=== PATIENT | male | born 1965 | race African-American/Black ===

== ENCOUNTER 2016-06-16 13:56 | Emergency (ER) | payer OTHER ==
[~2016-06-16 13:56] MED LIST: Iopamidol 370 76% 125 ML VIAL FS ONE
--- NOTE | 2016-06-16 14:44 | RAD ---
PORTABLE UPRIGHT FRONTAL CHEST RADIOGRAPH 06/16/2016 COMPARISON: 09/16/2014 HISTORY: Chest pain. FINDINGS: No pneumothorax, pleural fluid, focal consolidation, or alveolar edema. There is mild pulmonary vas cular prominence. Cardiac silhouette is prominent. IMPRESSION: No focal consolidation or alveolar edema. POS: [facility]
[2016-06-16 15:10] LABS: Anion Gap 23 mmol/L (10-20); BUN (Urea Nitrogen) 18 mg/dL (8.4-25.7); Bilirubin, Total 2.5 mg/dL (0.2-1.2); Calc. Creatinine Clearance 0 mL/min (70-130); Calcium 9.3 mg/dL (7.8-10.44); Carbon Dioxide 18 mmol/L (22-29); Chloride 106 mmol/L (98-107); Estimated GFR-MDRD 63; Glucose 106 mg/dL (70-105); Hemoglobin 12.1 g/dL (14.0-18.0); Lymphocytes 8 % (21-51); MDiff Complete? YES; Mean Corpuscular HGB CONC 31.5 g/dL (32.0-36.0); Mean Corpuscular Hemoglobin 27.6 pg (27.0-31.0); Mean Corpuscular Volume 87.6 fl (80.0-94.0); Mean Platelet Volume 12.4 fL (7.4-10.4); Monocytes 5 % (0-10); Neutrophil 87 % (42-75); Platelet Count 189 thou/uL (130-400); Potassium 4.4 mmol/L (3.5-5.1); Protein, Total 7.3 g/dL (6.0-8.3); RBC Distribution Width 17.5 % (11.5-14.5); Red Blood Cell (RBC) Count 4.39 mill/uL (4.70-6.10); Sodium 143 mmol/L (136-145); White Blood Cell (WBC) Count 13.3 thou/uL (4.8-10.8)
[2016-06-16 15:11] LABS: ALT (SGPT) 60 U/L (0-55); AST (SGOT) 66 U/L (5-34); Albumin 4.5 g/dL (3.5-5.0); Alkaline Phosphatase 89 U/L (40-150); Globulin 2.8 g/dL (2.4-3.5)
--- NOTE | 2016-06-16 17:15 | CT ---
CT ANGIOGRAM THORAX WITH IV CONTRAST AND 3D RECONSTRUCTIONS: Date: 06-16-16 History: Elevated D-Dimer in a patient with chest pain. Comparison: 07-29-14 FINDINGS: There is suboptimal timing of the contrast bullous which limits opacification of the segmental and s ubsegmental pulmonary arteries. No definitive filling defect is seen to suggest a pulmonary embolus . The thoracic aorta is normal in caliber without evidence of an aortic dissection. The heart is moderately enlarged. There is a very small pericardial effusion present. There is a moderately large right and small left pleural effusion with associated patch of atelectas is. Left lobe of the thyroid gland again remains enlarged and similar to the prior study. There is question of a nodule within the left lobe of the thyroid gland, again this is a stable finding. No other interval change. IMPRESSION: 1. Suboptimal opacification of the pulmonary arteries, but no definitive filling defect is seen to suggest a pulmonary embolus. 2. Thoracic aorta is normal in caliber without evidence of an aortic dissection. 3. Moderately large right and small left pleural effusions with associated passive atelectasis. 4. Stable enlargement of the left lobe of the thyroid gland with suggestion of a subtle heterogeneo us nodule present. This is unchanged from study in 2015. If thyroid ultrasound has not been perfor med, nonemergent thyroid ultrasound is suggested for further evaluation. POS: [facility]
[2016-06-16] MEDS ORDERED: Furosemide 40 MG/4 ML VIAL ONE (17:54)
[2016-06-16] MEDS ORDERED: Furosemide 20 MG/2 ML VIAL ONE (17:54)
--- NOTE | 2016-06-16 19:23 | ERRECORD ---
[facility] EMERGENCY RECORD HPI CHEST PAIN (15:26 ALMO) CHIEF COMPLAINT: Patient presents for evaluation of chest pain. HISTORIAN: History provided by patient. LOCATION: Symptoms are localized, most severe in the left lower chest, Pain radiates, Radiation to the arm, Radiation to the shoulder. QUALITY: Unable to describe the quality of the pain. SEVERITY: Maximum severity of symptoms moderate, Currently there are no symptoms. TIME COURSE: Gradual onset of symptoms, Symptoms have resolved. ASSOCIATED WITH: Associated with cough, Associated with diaphoresis, No associated fever, Associated with nausea, Associated with palpitations, Associated with shortness of breath, cough is chronic. EXACERBATED BY: Patient's condition exacerbated by nothing. RELIEVED BY: Patient's condition relieved by nothing. RISK FACTORS: Coronary artery disease risk factors, include diabetes, include high cholesterol, include hypertension. HEART SCORE: Patients history is Highly Suspicious (2), Patients ECG has Non specific repolarisation disturbance/LBTB/PM (1), Patients age is greater than 45 and less than 65 (1), Patient has equal to or greater than 3 risk factors or history of atherosclerotic disease (2), Patients Troponin is equal to or less than 1 times the normal limit (0). WELLS CRITERIA FOR PE: No clinical signs and symptoms of a DVT (0), Patient has, or is likely to have, a primary diagnosis of PE (3), Patient previously has had an objectively diagnosed PE or DVT (1.5), Total 4.5. ROS (18:37 ALMO) CONSTITUTIONAL: Historian denies fever. CARDIOVASCULAR: Historian reports chest pain, reports diaphoresis, reports palpitations. RESPIRATORY: Historian reports cough, reports shortness of breath. GI: Historian denies abdominal pain, reports nausea. SKIN: Negative skin review of systems. NEUROLOGIC: Historian denies focal weakness, denies mental status changes. NOTES: All systems reviewed, negative except as described above. PAST MEDICAL HISTORY (ThuJun 16, 2016 14:06 JACQUELINE) MEDICAL HISTORY: Notes: VERIFIED 06-16-16, Past medical history includes cardiac history, arrhythmia, a flutter, Past medical history includes history of hyperlipidemia, high cholesterol, currently being treated, Past medical history includes renal disease, Chronic kidney disease stage 3, now stage 2., Past medical history &a-1R&a+25V*p+0X*w0682H*c202B*c15G*c2P*p-0X&a-25V&a+1R Name: Darek Moreno : 1965 M51 MedRec: [id number] AcctNum: [id number] Prepared: ThuJun 16, 2016 20:10 by Interface Page 1 of 4 pMD [facility] EMERGENCY RECORD includes history of diabetes, Type II, uncontrolled. Past medical history includes history of hypertension,gout. 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 Systolic CHF with an EF of 20-25% in 2013 demonstrating global hypokinesis on Echo. MALE SURGICAL HISTORY: VERIFIED 06-16-16, I AND D OF CYST TO NECK AND R HAND. Debridement of diabetic ulcer to L foot over the 5th metatarsal with wound vac in place. PSYCHIATRIC HISTORY: Notes: DENIES, No previous psychiatric history. SOCIAL HISTORY: Patient has no smoking history, Patient denies alcohol use, Patient denies drug use. FAMILY HISTORY: Family istory is not significant. KNOWN ALLERGIES No Known Allergies (Unconfirmed) No Known Drug Allergies CURRENT MEDICATIONS furosemide: TABLET : Strength - 40 mg : ORAL Patient Dose: 0.5 tab(s) Oral once a day. (14:33 MDEB) lovastatin: TABLET : Strength - 40 mg : ORAL Patient Dose: 1 tab(s) Oral once a day. (14:33 MDEB) metFORMIN: TABLET : Strength - 500 mg : ORAL Patient Dose: 2 tab(s) Oral 2 times a day. (14:33 MDEB) meTOPROLOL tartrate: TABLET : Strength - 25 mg : ORAL Patient Dose: 2 tab(s) Oral 2 times a day. (14:33 MDEB) glyBURIDE: TABLET : Strength - 5 mg : ORAL Patient Dose: 1 tab(s) Oral 2 times a day. (14:34 MDEB) enalapril maleate: TABLET : Strength - 20 mg : ORAL Patient Dose: 1 tab(s) Oral once a day. (14:35 MDEB) HumuLIN 70/30: VIAL (ML) : Strength - 100 unit/mL (70-30) : SUBCUTANEOUS Patient Dose: Unknown.SS. (14:35 MDEB) ferrous sulfate: TABLET : Strength - 300 mg (60 mg iron) : ORAL Patient Dose: 1 tab(s) Oral once a day. (14:37 MDEB) VITAL SIGNS VITAL SIGNS: BP: 186/102, Pulse: 86, Resp: 17, O2 sat: 98 on Room Air, Time: 06/16/2016 13:58. (13:58 JPER) BP: 189/108, Pulse: 96, Resp: 22, O2 sat: 96 on Room Air, Time: 06/16/2016 14:30. (14:30 JPER) BP: 158/95, Pulse: 94, Resp: 21, O2 sat: 96 on Room Air, Time: 06/16/2016 15:00. (15:00 JPER) &a-1R&a+25V*p+0X*r8439Y*c202B*c15G*c2P*p-0X&a-25V&a+1R Name: Darek Moreno : 1965 M51 MedRec: [id number] AcctNum: [id number] Prepared: ThuJun 16, 2016 20:10 by Interface Page 2 of 4 pMD [facility] EMERGENCY RECORD BP: 164/93, Pulse: 93, Resp: 19, O2 sat: 98 on Room Air, Time: 06/16/2016 15:30. (15:30 JPER) BP: 159/96, Pulse: 107, Resp: 20, O2 sat: 98 on Room Air, Time: 06/16/2016 16:00. (16:00 JPER) BP: 177/96, Pulse: 101, Resp: 20, Temp: 98.5 (Tympanic), O2 sat: 98 on Room Air, Time: 06/16/2016 16:30. (16:30 JPER) BP: 175/121, Pulse: 103, Resp: 18, Temp: 98.5 (Tympanic), O2 sat: 98 on Room Air, Time: 06/16/2016 17:00. (17:00 JPER) BP: 176/107, Pulse: 97, Resp: 22, O2 sat: 98 on Room Air, Time: 06/16/2016 17:30. (17:30 JPER) PHYSICAL EXAM (18:38 ALMO) CONSTITUTIONAL: Vital Signs Reviewed. HEAD: Head exam included findings of head atraumatic, normocephalic. EYES: Pupils equally round and reactive to light, Extraocular muscles intact. NECK: Neck exam included findings of normal range of motion, Thyroid normal, Jugular venous distention present, no cervical adenopathy. RESPIRATORY CHEST: Respiratory exam included findings of, mild respiratory distress, Breath sounds diminished, to bilateral lower lobes. ABDOMEN MALE: Abdominal exam included findings of abdomen nontender, Bowel sounds normal, Liver normal, Spleen normal. BACK: Back exam included findings of normal inspection. NEURO: Neuro exam findings include patient oriented to person, place and time, no focal motor deficits. SKIN: Skin exam normal. PSYCHIATRIC: Psychiatric exam included findings of patient oriented to person place and time, Normal affect, Judgment normal, Insight normal. EKG INTERPRETATION (15:32 ALMO) MONITOR STRIP: Monitor strip shows normal sinus rhythm. 12 LEAD EKG INTERPRETATION: 12 lead EKG interpreted by Emergency Department Physician at time of study, Conduction with, [place], right, Other findings include:, prolonged QTc. MEDICATION ADMINISTRATION SUMMARY Drug Name: furosemide (bulk), Dose Ordered: 80 mg, Route: IV Push, Status: Given, Time: 17:59 06/16/2016, Drug Name: Aspir-81, Dose Ordered: 4 tab(s), Route: Oral, Status: Given, Time: 14:20 06/16/2016, Detailed record available in Medication Service section. PROBLEM LIST No recorded problems &a-1R&a+25V*p+0X*q4638R*c202B*c15G*c2P*p-0X&a-25V&a+1R Name: Darek Moreno : 1965 M51 MedRec: [id number] AcctNum: [id number] Prepared: ThuJun 16, 2016 20:10 by Interface Page 3 of 4 pMD [facility] EMERGENCY RECORD DIAGNOSIS (19:12 MDEB) FINAL: PRIMARY: CHEST PAIN R/O, CHF. PRESCRIPTION No recorded prescriptions DISPOSITION PATIENT: Disposition Type: Transfer, Disposition: Transfer to [facility], Patient left the department. (19:12 MDEB) Patient left the department. (20:05 MDEB) Isaacs: UCHE=MD Julian, Charlie PHILLIPS=Riley RN, Gifty WILBURN=DWAYNE Ordonez, Melinda &a-1R&a+25V*p+0X*g1577K*c202B*c15G*c2P*p-0X&a-25V&a+1R Name: Darek Moreno : 1965 M51 MedRec: [id number] AcctNum: [id number] Prepared: Raheem Jun 16, 2016 20:10 by Interface Page 4 of 4 pMD MTDD
--- NOTE | 2016-06-16 19:32 | PICIS ---
[facility] EMERGENCY RECORD TRIAGE (ThuJun 16, 2016 14:06 JPER) PATIENT: NAME: Darek Moreno, AGE: 51, GENDER: male, : [facility] 1965, TIME OF GREET: ThuJun 16, 2016 13:57, PREFERRED LANGUAGE: Salvadorean, RACE: Black or , ETHNICITY: Not or , ECODE BILLING MAP: [facility], SSN: [id number], Zip Code: [address], KG WEIGHT: 131.54 (est.), PHONE: , , , PERSON ID: [id number], PCP: SNEHA. (ThuJun 16, 2016 14:06 JPER) COMPLAINT: CHEST PAINS. (ThuJun 16, 2016 14:06 JPER) ADMISSION: URGENCY: 3 Urgent, ADMISSION SOURCE: Doctor's Office, TRANSPORT: Walk-in, BED: ED -02. (ThuJun 16, 2016 14:06 JPER) ASSESSMENT: Assessment: CP / SOB ONSET X 2 DAYS. (ThuJun 16, 2016 14:06 JPER) PAIN: Patient complains of pain described as, No aggravating factors, No relieving factors. (ThuJun 16, 2016 14:06 JPER) SIRS SCORING: Heart Rate 55-109 (0), Temp range 96.8-101.1 (0), respiratory rate 12-24 (0), Mental Status altered: no (0). (ThuJun 16, 2016 14:06 JPER) TRIAGE SCREENING: Patient denies suicidal ideation, Patient denies presence of domestic violence. (ThuJun 16, 2016 14:06 JPER) PROVIDERS: TRIAGE NURSE: Gifty Lin RN. (ThuJun 16, 2016 14:06 JPER) VITAL SIGNS: BP 186/102, Pulse 86, Resp 17, O2 Sat 98, on Room Air, Time 06/16/2016 13:58. (13:58 JPER) PREVIOUS VISIT ALLERGIES: No Known Drug Allergies. (ThuJun 16, 2016 14:06 JPER) KNOWN ALLERGIES No Known Allergies (Unconfirmed) No Known Drug Allergies CURRENT MEDICATIONS furosemide: TABLET : Strength - 40 mg : ORAL Patient Dose: 0.5 tab(s) Oral once a day. (14:33 MDEB) lovastatin: TABLET : Strength - 40 mg : ORAL Patient Dose: 1 tab(s) Oral once a day. (14:33 MDEB) metFORMIN: TABLET : Strength - 500 mg : ORAL Patient Dose: 2 tab(s) Oral 2 times a day. (14:33 MDEB) meTOPROLOL tartrate: TABLET : Strength - 25 mg : ORAL Patient Dose: 2 tab(s) Oral 2 times a day. (14:33 MDEB) glyBURIDE: TABLET : Strength - 5 mg : ORAL Patient Dose: 1 tab(s) Oral 2 times a day. (14:34 MDEB) enalapril maleate: &a-1R&a+25V*p+0X*i2616F*c202B*c15G*c2P*p-0X&a-25V&a+1R Name: Darek Moreno : 1965 M51 MedRec: [id number] AcctNum: [id number] Prepared: ThuJun 16, 2016 20:17 by Interface Page 1 of 9 pMD [facility] EMERGENCY RECORD TABLET : Strength - 20 mg : ORAL Patient Dose: 1 tab(s) Oral once a day. (14:35 MDEB) HumuLIN 70/30: VIAL (ML) : Strength - 100 unit/mL (70-30) : SUBCUTANEOUS Patient Dose: Unknown.SS. (14:35 MDEB) ferrous sulfate: TABLET : Strength - 300 mg (60 mg iron) : ORAL Patient Dose: 1 tab(s) Oral once a day. (14:37 MDEB) VITAL SIGNS VITAL SIGNS: BP: 186/102, Pulse: 86, Resp: 17, O2 sat: 98 on Room Air, Time: 06/16/2016 13:58. (13:58 JPER) BP: 189/108, Pulse: 96, Resp: 22, O2 sat: 96 on Room Air, Time: 06/16/2016 14:30. (14:30 JPER) BP: 158/95, Pulse: 94, Resp: 21, O2 sat: 96 on Room Air, Time: 06/16/2016 15:00. (15:00 JPER) BP: 164/93, Pulse: 93, Resp: 19, O2 sat: 98 on Room Air, Time: 06/16/2016 15:30. (15:30 JPER) BP: 159/96, Pulse: 107, Resp: 20, O2 sat: 98 on Room Air, Time: 06/16/2016 16:00. (16:00 JPER) BP: 177/96, Pulse: 101, Resp: 20, Temp: 98.5 (Tympanic), O2 sat: 98 on Room Air, Time: 06/16/2016 16:30. (16:30 JPER) BP: 175/121, Pulse: 103, Resp: 18, Temp: 98.5 (Tympanic), O2 sat: 98 on Room Air, Time: 06/16/2016 17:00. (17:00 JPER) BP: 176/107, Pulse: 97, Resp: 22, O2 sat: 98 on Room Air, Time: 06/16/2016 17:30. (17:30 JPER) NURSING ASSESSMENT: CARDIOVASCULAR (14:07 JPER) CONSTITUTIONAL: Patient arrives, via personal wheelchair, Unsteady gait, Assistance to cart, History obtained from patient, Patient appears, anxious, uncomfortable, Patient cooperative, Patient alert, Oriented to person, place and time, Skin warm, Skin dry, Skin normal in color, Mucous membranes pink, Mucous membranes moist, Patient is well-groomed, Patient complains of CP / SOB X 2 DAYS. PAIN: midsternal. CARDIOVASCULAR: Cardiovascular assessment findings include heart rate normal, Left radial pulse +3(easily palpated, considered normal), Right radial pulse +3(easily palpated, considered normal). RESPIRATORY/CHEST: Breath sounds clear, Respiratory assessment findings include respiratory effort easy, Respirations regular, Conversing normally, Neck and chest exam findings include trachea midline, Chest expansion equal, Chest movement symmetrical. NOTES: Emotional support needed and given, Patient tolerated procedure well. SAFETY: Side rails up, Cart/Stretcher in lowest position, Family at bedside, Call light within reach, Hospital ID band on. NURSING PROCEDURE: BEDSIDE TESTING PATIENT IDENTIFIER: Patient actively involved in identification &a-1R&a+25V*p+0X*x1899R*c202B*c15G*c2P*p-0X&a-25V&a+1R Name: Darek Moreno : 1965 M51 MedRec: [id number] AcctNum: [id number] Prepared: ThuJun 16, 2016 20:17 by Interface Page 2 of 9 pMD [facility] EMERGENCY RECORD process, Patient's identity verified by patient stating name, Patient's identity verified by patient stating date, Patient's identity verified by hospital ID bracelet, Patient's identity verified by family member. (16:17 AWAT) Patient actively involved in identification process, Patient's identity verified by patient stating name, Patient's identity verified by hospital ID bracelet. (19:08 AGAN) GLUCOSE: Capillary blood sample, Result (mg/dl) 97. (16:17 AWAT) Glucose testing indicated for diabetic patient, Capillary blood sample, Result (mg/dl) 98. (19:08 AGAN) FOLLOW-UP: After procedure, results given to Dr. JORDAN. (16:17 AWAT) After procedure, results given to Dr. PITTMAN. (19:08 AGAN) SAFETY: Side rails up, Cart/Stretcher in lowest position, Family at bedside, Call light within reach, Hospital ID band on, Physician notified of above findings. (16:17 AWAT) Side rails up, Cart/Stretcher in lowest position, Family at bedside, Hospital ID band on. (19:08 AGAN) NURSING PROCEDURE: IV (14:40 AWAT) PATIENT IDENITIFIER: Patient actively involved in identification process, Patient's identity verified by patient stating name, Patient's identity verified by patient stating date, Patient's identity verified by hospital ID bracelet, Patient's identity verified by family member. IV SITE 1: IV therapy indicated for chest pain, IV established, to the right forearm, using a 20 gauge catheter, in four attempts, IV site prepped with chloraprep, Saline lock established, Flushed with normal saline (mls): 10, Labs drawn at time of placement, labeled in the presence of the patient and sent to lab, Notes: 4 attempts total by myself & one other RN. FOLLOW-UP SITE 1: After procedure, sterile transparent dressing applied. NOTES: Emotional support needed and given, Patient tolerated procedure well. SAFETY: Side rails up, Cart/Stretcher in lowest position, Family at bedside, Call light within reach, Hospital ID band on, Physician notified of above findings. NURSING PROCEDURE: NURSE NOTES NURSES NOTES: Notes: PT SAYS HE IS MINIMALLY IMPROVED SAYING HE FEELS A BIT IMPROVED OVER ARRIVAL; PT APPEARS APPREHENSIVE AND LOOKS TO ANSWER ALL QUESTIONS APPROPRIATELY; PT CONT IN SR RATE 90'S. (15:25 JPER) Notes: TO HAVE CTA DUE TO ABNORMAL LABS. (15:55 JPER) Notes: CONT TO WAIT TRANSFER; PT IN SR CONT HYPERTENSIVE; PT IS PLEASANT ET COOPERATIVE; IN SR RATE 95. (17:26 JPER) ORDER DETAILS &a-1R&a+25V*p+0X*f3401K*c202B*c15G*c2P*p-0X&a-25V&a+1R Name: Darek Moreno : 1965 M51 MedRec: [id number] AcctNum: [id number] Prepared: ThuJun 16, 2016 20:17 by Interface Page 3 of 9 pMD [facility] EMERGENCY RECORD Order Name: B type Natriuretic Peptide, Status: Active, Time: 14:23 06/16/2016, User: UCHE, - Ordered for: MD Jordan Alberto, - Entered by: MD Jordan Alberto - ThuJun 16, 2016 14:23, - Quantity: 1, Order Name: CBC with Differential, Status: Active, Time: 14:23 06/16/2016, User: UCHE, - Ordered for: MD Jordan Alberto, - Entered by: MD Jordan Alberto - ThuJun 16, 2016 14:23, - Quantity: 1, Order Name: Comprehensive Metabolic Panel, Status: Active, Time: 14:23 06/16/2016, User: UCHE, - Ordered for: MD Jordan Alberto, - Entered by: MD Jordan Alberto - ThuJun 16, 2016 14:23, - Quantity: 1, Order Name: CTA Angio Chest W WO Con(PE Protocol), Status: Active, Time: 16:07 06/16/2016, User: JENA, - Ordered for: MD Jordan Alberto, - Entered by: DWAYNE Delatorre Adam - ThuJun 16, 2016 16:07, - Quantity: 1, Order Name: D-Dimer (Quantitative), Status: Active, Time: 14:23 06/16/2016, User: UCHE, - Ordered for: MD Jordan Alberto, - Entered by: MD Jordan Alberto - [facility] Jun 16, 2016 14:23, - Quantity: 1, Order Name: EKG 12 Lead in Emergency Room, Status: Active, Time: 14:24 06/16/2016, User: UCHE, - Ordered for: MD Jordan Alberto, - Entered by: MD Jordan Alberto - [facility] Jun 16, 2016 14:24, - Quantity: 1, Order Name: Troponin - I, Status: Active, Time: 14:24 06/16/2016, User: UCHE, - Ordered for: MD Jordan Alberto, - Entered by: MD Jordan Alberto - [facility] Jun 16, 2016 14:24, - Quantity: 1, Order Name: XR Chest 1 View Portable, Status: Active, Time: 14:23 06/16/2016, User: UCHE, - Ordered for: MD Jordan Alberto, - Entered by: MD Jordan Alberto - [facility] Jun 16, 2016 14:23, - Quantity: 1. MEDICATION ADMINISTRATION SUMMARY Drug Name: furosemide (bulk), Dose Ordered: 80 mg, Route: IV Push, Status: Given, Time: 17:59 06/16/2016, Drug Name: Aspir-81, Dose Ordered: 4 tab(s), Route: Oral, Status: Given, Time: 14:20 06/16/2016, Detailed record available in Medication Service section. MEDICATION SERVICE &a-1R&a+25V*p+0X*h3427Z*c202B*c15G*c2P*p-0X&a-25V&a+1R Name: Darek Moreno : 1965 M51 MedRec: [id number] AcctNum: [id number] Prepared: ThuJun 16, 2016 20:17 by Interface Page 4 of 9 pMD [facility] EMERGENCY RECORD Aspir-81: Order: Aspir-81 (aspirin) - Dose: 4 tab(s) : Oral Schedule: Now Ordered by: Charlie Jordan MD Entered by: Melinda Ordonez RN ThuJun 16, 2016 16:20 Documented as given by: Melinda Ordonez RN ThuJun 16, 2016 14:20 Patient, Medication, Dose, Route and Time verified prior to administration. Amount given: 4 TABS, Site: Medication administered P.O., Correct patient, time, route, dose and medication confirmed prior to administration, Patient advised of actions and side-effects prior to administration, Allergies confirmed and medications reviewed prior to administration, Patient in position of comfort, Side rails up, Cart in lowest position, Family at bedside. furosemide (bulk): Order: furosemide (bulk) (furosemide) - Dose: 80 mg : IV Push Schedule: Now Ordered by: Charlie Jordan MD Entered by: Charlie Jordan MD ThuJun 16, 2016 17:53 Documented as given by: Melinda Ordonez RN ThuJun 16, 2016 17:59 Patient, Medication, Dose, Route and Time verified prior to administration. Amount given: 80 MG, IV SITE #1 IVP, initial medication, Slowly, Catheter placement confirmed via flush prior to administration, IV site without signs or symptoms of infiltration during medication administration, No swelling during administration, No drainage during administration, IV flushed after administration, Correct patient, time, route, dose and medication confirmed prior to administration, Patient advised of actions and side-effects prior to administration, Allergies confirmed and medications reviewed prior to administration, Patient in position of comfort, Side rails up, Cart in lowest position, Family at bedside. HPI CHEST PAIN (15:26 ALMO) CHIEF COMPLAINT: Patient presents for evaluation of chest pain. HISTORIAN: History provided by patient. LOCATION: Symptoms are localized, most severe in the left lower chest, Pain radiates, Radiation to the arm, Radiation to the shoulder. QUALITY: Unable to describe the quality of the pain. SEVERITY: Maximum severity of symptoms moderate, Currently there are no symptoms. TIME COURSE: Gradual onset of symptoms, Symptoms have resolved. ASSOCIATED WITH: Associated with cough, Associated with diaphoresis, No associated fever, Associated with nausea, Associated with palpitations, Associated with shortness of breath, cough is chronic. EXACERBATED BY: Patient's condition exacerbated by nothing. &a-1R&a+25V*p+0X*m1047J*c202B*c15G*c2P*p-0X&a-25V&a+1R Name: Darek Moreno Maribeth : 1965 3 MedRec: [id number] AcctNum: [id number] Prepared: ThuJun 16, 2016 20:17 by Interface Page 5 of 9 pMD [facility] EMERGENCY RECORD RELIEVED BY: Patient's condition relieved by nothing. RISK FACTORS: Coronary artery disease risk factors, include diabetes, include high cholesterol, include hypertension. HEART SCORE: Patients history is Highly Suspicious (2), Patients ECG has Non specific repolarisation disturbance/LBTB/PM (1), Patients age is greater than 45 and less than 65 (1), Patient has equal to or greater than 3 risk factors or history of atherosclerotic disease (2), Patients Troponin is equal to or less than 1 times the normal limit (0). WELLS CRITERIA FOR PE: No clinical signs and symptoms of a DVT (0), Patient has, or is likely to have, a primary diagnosis of PE (3), Patient previously has had an objectively diagnosed PE or DVT (1.5), Total 4.5. ROS (18:37 ALMO) CONSTITUTIONAL: Historian denies fever. CARDIOVASCULAR: Historian reports chest pain, reports diaphoresis, reports palpitations. RESPIRATORY: Historian reports cough, reports shortness of breath. GI: Historian denies abdominal pain, reports nausea. SKIN: Negative skin review of systems. NEUROLOGIC: Historian denies focal weakness, denies mental status changes. NOTES: All systems reviewed, negative except as described above. PAST MEDICAL HISTORY (ThuJun 16, 2016 14:06 JPER) MEDICAL HISTORY: Notes: VERIFIED 06-16-16, Past medical history includes cardiac history, arrhythmia, a flutter, Past medical history includes history of hyperlipidemia, high cholesterol, currently being treated, Past medical history includes renal disease, Chronic kidney disease stage 3, now stage 2., Past medical history includes history of diabetes, Type II, uncontrolled. Past medical history includes history of hypertension,gout. 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 Systolic CHF with an EF of 20-25% in 2014 demonstrating global hypokinesis on Echo. MALE SURGICAL HISTORY: VERIFIED 06-16-16, I AND D OF CYST TO NECK AND R HAND. Debridement of diabetic ulcer to L foot over the 5th metatarsal with wound vac in place. PSYCHIATRIC HISTORY: Notes: DENIES, No previous psychiatric history. SOCIAL HISTORY: Patient has no smoking history, Patient denies alcohol use, Patient denies drug use. FAMILY HISTORY: Family istory is not significant. PHYSICAL EXAM (18:38 ALMO) CONSTITUTIONAL: Vital Signs Reviewed. HEAD: Head exam included findings of head atraumatic, normocephalic. &a-1R&a+25V*p+0X*o1689T*c202B*c15G*c2P*p-0X&a-25V&a+1R Name: Darek Moreno : 1965 M51 MedRec: [id number] AcctNum: [id number] Prepared: ThuJun 16, 2016 20:17 by Interface Page 6 of 9 pMD [facility] EMERGENCY RECORD EYES: Pupils equally round and reactive to light, Extraocular muscles intact. NECK: Neck exam included findings of normal range of motion, Thyroid normal, Jugular venous distention present, no cervical adenopathy. RESPIRATORY CHEST: Respiratory exam included findings of, mild respiratory distress, Breath sounds diminished, to bilateral lower lobes. ABDOMEN MALE: Abdominal exam included findings of abdomen nontender, Bowel sounds normal, Liver normal, Spleen normal. BACK: Back exam included findings of normal inspection. NEURO: Neuro exam findings include patient oriented to person, place and time, no focal motor deficits. SKIN: Skin exam normal. PSYCHIATRIC: Psychiatric exam included findings of patient oriented to person place and time, Normal affect, Judgment normal, Insight normal. EVENTS TRANSFER: Triage to Emergency Main ED -02. (ThuJun 16, 2016 14:06 JPER) Removed from Emergency Main ED -02. (19:12 MDEB) Readmit to Emergency Triage. (19:15 AWAT) Emergency Triage to Main ED -02. (19:15 AWAT) Removed from Emergency Main ED -02. (20:05 MDEB) EKG INTERPRETATION (15:32 ALMO) MONITOR STRIP: Monitor strip shows normal sinus rhythm. 12 LEAD EKG INTERPRETATION: 12 lead EKG interpreted by Emergency Department Physician at time of study, Conduction with, Gregory, right, Other findings include:, prolonged QTc. PROBLEM LIST No recorded problems DIAGNOSIS (19:12 MDEB) FINAL: PRIMARY: CHEST PAIN R/O, CHF. DISPOSITION PATIENT: Disposition Type: Transfer, Disposition: Transfer to [facility], Patient left the department. (19:12 MDEB) Patient left the department. (20:05 MDEB) PRESCRIPTION No recorded prescriptions IMAGING *EKG: Image captured from scanner. (14:32 JPAR) DOCTOR OFFICE NOTES: Image captured from scanner. (17:30 JPER) &a-1R&a+25V*p+0X*y3282P*c202B*c15G*c2P*p-0X&a-25V&a+1R Name: Darek Moreno : 1965 M51 MedRec: [id number] AcctNum: [id number] Prepared: ThuJun 16, 2016 20:17 by Interface Page 7 of 9 pMD [facility] EMERGENCY RECORD *MEMORANDUM OF TRANSFER: Image captured from scanner. (18:12 MDEB) CONSENT FOR TRANSFER: Image captured from scanner. (18:12 MDEB) EMS TRANSPORT ORDERS: Image captured from scanner. (18:13 MDEB) RESULTS LABORATORY: Troponin - I Collection DT: ThuJun 16, 2016 14:49, *Troponin I 0.081 - H ng/mL, Range (< 0.028), Reference Range , 0.00 - 0.028 ng/mL Negative 0.029 - 0.29 ng/mL , Indeterminate Greater or Equal to 0.3 ng/mL Strongly suggests IN , . (16:02 MDEB) B type Natriuretic Peptide Collection DT: ThuJun 16, 2016 14:49, *B type Natriuretic Peptide 1792.0 - H pg/mL, Range (0-100). (16:02 MDEB) CBC with Differential Collection DT: ThuJun 16, 2016 14:49, *White Blood Cell (WBC) Count 13.3 - H thou/uL, Range (4.8-10.8), *Red Blood Cell (RBC) Count 4.39 - L mill/uL, Range (4.70-6.10), *Hemoglobin 12.1 - L g/dL, Range (14.0-18.0), *Hematocrit 38.5 - L %, Range (42.0-52.0), Mean Corpuscular Volume 87.6 fl, Range (80.0-94.0), Mean Corpuscular Hemoglobin 27.6 pg, Range (27.0-31.0), *Mean Corpuscular HGB CONC 31.5 - L g/dL, Range (32.0-36.0), *RBC Distribution Width 17.5 - H %, Range (11.5-14.5), Platelet Count 189 thou/uL, Range (130-400), *Mean Platelet Volume 12.4 - H fL, Range (7.4-10.4), *Neutrophil 87 - H %, Range (42-75), *Lymphocytes 8 - L %, Range (21-51), Monocytes 5 %, Range (0-10). (16:02 COSMO) Comprehensive Metabolic Panel Collection DT: ThuJun 16, 2016 14:49, Sodium 143 mmol/L, Range (136-145), Potassium 4.4 mmol/L, Range (3.5-5.1), Chloride 106 mmol/L, Range (98-107), *Carbon Dioxide 18 - L mmol/L, Range (22-29), *Anion Gap 23 - H mmol/L, Range (10-20), BUN (Urea Nitrogen) 18 mg/dL, Range (8.4-25.7), *Creatinine 1.42 - H mg/dL, Range (0.7-1.3), Estimated GFR-MDRD 63 , Reference Range for Estimated GFR: Greater than 90, mL/min/1.73 m2 NOTE: The MDRD equation has not been validated for use, with the elderly (over 70 years of age), women, patients with, serious comorbid condition or persons with extremes of &a-1R&a+25V*p+0X*i7604G*c202B*c15G*c2P*p-0X&a-25V&a+1R Name: Darek Moreno : 1965 M51 MedRec: [id number] AcctNum: [id number] Prepared: ThuJun 16, 2016 20:17 by Interface Page 8 of 9 pMD [facility] EMERGENCY RECORD body size, muscle, mass, or nutritional status. , *Glucose 106 - H mg/dL, Range (70-105), Calcium 9.3 mg/dL, Range (7.8-10.44), *Bilirubin, Total 2.5 - H mg/dL, Range (0.2-1.2), Protein, Total 7.3 g/dL, Range (6.0-8.3), NOTE: Plasma values are generally 0.3 to 0.5 g/dL higher than serum values, due to the presence of fibrinogen. , Albumin 4.5 g/dL, Range (3.5-5.0), Globulin 2.8 g/dL, Range (2.4-3.5), Alb/Glob Ratio 1.6 g/dL, Range (1.2-2.2), Alkaline Phosphatase 89 U/L, Range (40-150), *AST (SGOT) 66 - H U/L, Range (5-34), *ALT (SGPT) 60 - H U/L, Range (0-55). (16:02 MDEB) D-Dimer (Quantitative) Collection DT: ThuJun 16, 2016 14:49, *D-Dimer Test 1.34 - H *mcg/mL, Range (0.27-0.43), * Reference Range Units: mcg/mL of fibrinogen equivalent, units(FEU) Based upon a retrospective study of [facility] patients in September 2005, a result of Less than 0.44 mcg/mL FEU is, predictive of the absence of a DVT or PE. . (16:02 MDEB) Accuchek Collection DT: ThuJun 16, 2016 16:25, Accuchek 97 mg/dL, Range (70-110). (16:57 AWAT) Accuchek Collection DT: ThuJun 16, 2016 16:25, Accuchek 97 mg/dL, Range (70-110). (16:57 AWAT) Isaacs: PAULA=DWAYNE Mata, Everardo IVEY=MD Julian, Charlie BELLA=DWAYNE Delatorre, Renard RANGEL=NAIDA Hdz, Batool PHILLIPS=DWAYNE Lin, Gifty WILBURN=DWAYNE Ordonez, Melinda &a-1R&a+25V*p+0X*k7788A*c202B*c15G*c2P*p-0X&a-25V&a+1R Name: Darek Moreno: 1965 M51 MedRec: [id number] AcctNum: [id number] Prepared: ThuJun 16, 2016 20:17 by Interface Page 9 of 9 pMD MTDD
== END 2016-06-16 19:40 | disposition short-term general hospital (02) ==
LOC: MADERS 13:56
DX: R07.9 Chest pain, unspecified (principal); E78.5 Hyperlipidemia, unspecified; E78.00 Pure hypercholesterolemia, unspecified; E11.65 Type 2 diabetes mellitus with hyperglycemia; I13.0 Hypertensive heart and chronic kidney disease with heart failure and stage 1 through stage 4 chronic kidney disease, or unspecified chronic kidney disease; N18.3 Chronic kidney disease, stage 3 (moderate); I50.20 Unspecified systolic (congestive) heart failure; Z79.4 Long term (current) use of insulin; Z79.899 Other long term (current) drug therapy
CPT/HCPCS: 36416; 71010; 71275; 80053; 83880; 84484; 85025; 85379; 93005; 96374; J1940

== ENCOUNTER 2016-09-15 13:33 | Outpatient (CLI) | payer OTHER ==
[2016-09-15 16:25] LABS: Cardiac Risk 3.2 (Less than 4.5)
== END 2016-09-15 13:34 ==
LOC: MADLABBHPM 13:33
PROVIDERS: ATTEND Family Medicine
DX: I50.33 Acute on chronic diastolic (congestive) heart failure (principal)
CPT/HCPCS: 36415; 80061

== ENCOUNTER 2016-10-01 11:50 | Outpatient (CLI) | payer OTHER ==
[2016-10-01 12:40] LABS: Hemoglobin A1c 8.6 % (4.0-6.0)
[2016-10-01 12:58] LABS: ALT (SGPT) 34 U/L (8-55); AST (SGOT) 26 U/L (5-34); Albumin 4.5 g/dL (3.5-5.0); Alkaline Phosphatase 92 U/L (40-150); Anion Gap 14 mmol/L (10-20); BUN (Urea Nitrogen) 24 mg/dL (8.4-25.7); Bilirubin, Total 0.4 mg/dL (0.2-1.2); Calc. Creatinine Clearance 0 mL/min (70-130); Calcium 10.1 mg/dL (7.8-10.44); Carbon Dioxide 24 mmol/L (22-29); Chloride 105 mmol/L (98-107); Estimated GFR-MDRD 67; Globulin 3.3 g/dL (2.4-3.5); Glucose 172 mg/dL (70-105); Potassium 4.3 mmol/L (3.5-5.1); Protein, Total 7.8 g/dL (6.0-8.3); Sodium 139 mmol/L (136-145)
[2016-10-01 17:48] LABS: Creatinine, Urine 100.38 mg/dL (63-166); Microalbumin Urine 1.1 mg/dL (0.5-50.0)
== END 2016-10-01 11:51 | disposition home or self-care (01) ==
LOC: MADLABBHPM 11:50
PROVIDERS: ATTEND Family Medicine
DX: I10 Essential (primary) hypertension (principal); R80.9 Proteinuria, unspecified
CPT/HCPCS: 36415; 80053; 82043; 83036; 84443

== ENCOUNTER 2017-01-05 09:46 | Outpatient (CLI) | payer OTHER ==
[2017-01-05 10:15] LABS: Hemoglobin A1c 9.3 % (4.0-6.0)
[2017-01-05 10:49] LABS: ALT (SGPT) 27 U/L (8-55); AST (SGOT) 20 U/L (5-34); Albumin 4.4 g/dL (3.5-5.0); Alkaline Phosphatase 97 U/L (40-150); Anion Gap 18 mmol/L (10-20); BUN (Urea Nitrogen) 18 mg/dL (8.4-25.7); Bilirubin, Total 0.4 mg/dL (0.2-1.2); Calc. Creatinine Clearance 0 mL/min (70-130); Calcium 9.7 mg/dL (7.8-10.44); Carbon Dioxide 24 mmol/L (22-29); Chloride 103 mmol/L (98-107); Estimated GFR-MDRD 56; Globulin 3.5 g/dL (2.4-3.5); Glucose 203 mg/dL (70-105); Potassium 4.2 mmol/L (3.5-5.1); Protein, Total 7.9 g/dL (6.0-8.3); Sodium 141 mmol/L (136-145)
== END 2017-01-05 09:47 | disposition home or self-care (01) ==
LOC: MADLABBHPM 09:46
PROVIDERS: ATTEND Family Medicine
DX: E11.9 Type 2 diabetes mellitus without complications (principal)
CPT/HCPCS: 36415; 80053; 83036

== ENCOUNTER 2017-06-23 10:33 | Outpatient (CLI) | payer OTHER ==
[2017-06-23 11:21] LABS: ALT (SGPT) 25 U/L (8-55); AST (SGOT) 20 U/L (5-34); Albumin 4.1 g/dL (3.5-5.0); Alkaline Phosphatase 79 U/L (40-150); Anion Gap 15 mmol/L (10-20); BUN (Urea Nitrogen) 6 mg/dL (8.4-25.7); Bilirubin, Total 1.1 mg/dL (0.2-1.2); Calc. Creatinine Clearance 0 mL/min (70-130); Calcium 8.9 mg/dL (7.8-10.44); Carbon Dioxide 26 mmol/L (22-29); Cardiac Risk 4.2 (Less than 4.5); Chloride 106 mmol/L (98-107); Cholesterol 169 mg/dl (< 200 Desired); Estimated GFR-MDRD 76; Globulin 3.2 g/dL (2.4-3.5); Glucose 64 mg/dL (70-105); HDL Cholesterol 40 mg/dL (>60 Neg Risk); LDL Cholesterol, Calculated 96 mg/dL; Potassium 3.1 mmol/L (3.5-5.1); Protein, Total 7.3 g/dL (6.0-8.3); Sodium 144 mmol/L (136-145); Triglycerides 167 mg/dL (Less than 150)
[2017-06-23 16:54] LABS: Hemoglobin A1c 8.1 % (4.0-6.0)
== END 2017-06-23 10:34 | disposition home or self-care (01) ==
LOC: MADLABBHPM 10:33
PROVIDERS: ATTEND Family Medicine
DX: E11.9 Type 2 diabetes mellitus without complications (principal)
CPT/HCPCS: 36415; 80053; 80061; 83036

== ENCOUNTER 2018-05-24 13:40 | Outpatient (CLI) | payer OTHER ==
[2018-05-24 14:24] LABS: ALT (SGPT) 72 U/L (8-55); AST (SGOT) 47 U/L (5-34); Albumin 4.4 g/dL (3.5-5.0); Alkaline Phosphatase 92 U/L (40-150); Anion Gap 14 mmol/L (10-20); BUN (Urea Nitrogen) 14 mg/dL (8.4-25.7); Bilirubin, Total 0.4 mg/dL (0.2-1.2); Calc. Creatinine Clearance 0 mL/min (70-130); Calcium 9.5 mg/dL (7.8-10.44); Carbon Dioxide 25 mmol/L (22-29); Chloride 106 mmol/L (98-107); Estimated GFR-MDRD 63; Globulin 3.1 g/dL (2.4-3.5); Potassium 3.9 mmol/L (3.5-5.1); Protein, Total 7.5 g/dL (6.0-8.3); Sodium 141 mmol/L (136-145)
[2018-05-24 14:32] LABS: #Basophils 0.2 thou/uL (0.0-0.2); #Eosinphils 0.3 thou/uL (0.0-0.7); #Lymphocytes 2.2 thou/uL (1.20-3.40); #Monocytes 0.8 thou/uL (0.11-0.59); #Neutrophils 7.5 thou/uL (1.40-6.50); %Basophils 2.2 % (0.0-1.0); %Eosinophils 2.6 % (0.0-10.0); %Lymphocytes 19.7 % (21.0-51.0); %Monocytes 7.4 % (0.0-10.0); Hemoglobin 15.6 g/dL (14.0-18.0); Mean Corpuscular HGB CONC 31.4 g/dL (32.0-36.0); Mean Corpuscular Hemoglobin 27.9 pg (27.0-31.0); Mean Corpuscular Volume 88.7 fL (78.0-98.0); Mean Platelet Volume 11.7 fL (7.4-10.4); Platelet Count 198 thou/uL (130-400); RBC Distribution Width 13.2 % (11.5-14.5)
[2018-05-24 14:39] LABS: Thyroid Stimulating Hormone 0.5736 uIU/mL (0.35-4.94)
[2018-05-24 21:41] LABS: Hemoglobin A1c 6.6 % (4.0-6.0)
[2018-05-24 22:01] LABS: Ferritin 292.03 ng/mL (22-322); Free T4 (Free Thyroxine) 1.12 ng/dL (0.70-1.48)
[2018-05-24 22:23] LABS: Iron 88 ug/dL (65-175)
[2018-05-26 10:22] LABS: Glucose 47 mg/dL (70-105)
== END 2018-05-24 13:41 | disposition home or self-care (01) ==
LOC: MADLABBHPM 13:40
PROVIDERS: ATTEND Family Medicine
DX: E11.9 Type 2 diabetes mellitus without complications (principal); D64.9 Anemia, unspecified
CPT/HCPCS: 36415; 80053; 82728; 83036; 83540; 84439; 84443; 85025

== ENCOUNTER 2019-05-24 11:34 | Outpatient (CLI) | payer OTHER ==
[2019-05-24 12:01] LABS: #Basophils 0.2 thou/uL (0.0-0.2); #Eosinphils 0.2 thou/uL (0.0-0.7); #Lymphocytes 1.6 thou/uL (1.20-3.40); #Monocytes 0.9 thou/uL (0.11-0.59); #Neutrophils 10.2 thou/uL (1.40-6.50); %Basophils 1.9 % (0.0-1.0); %Eosinophils 1.2 % (0.0-10.0); %Lymphocytes 12.4 % (21.0-51.0); %Monocytes 6.6 % (0.0-10.0); %Neutrophils 77.9 % (42.0-75.0); Hemoglobin 13.9 g/dL (14.0-18.0); Mean Corpuscular HGB CONC 29.1 g/dL (32.0-36.0); Mean Corpuscular Hemoglobin 27.3 pg (27.0-31.0); Mean Corpuscular Volume 93.6 fL (78.0-98.0); Mean Platelet Volume 11.5 fL (7.4-10.4); Platelet Count 226 thou/uL (130-400); RBC Distribution Width 13.7 % (11.5-14.5)
[2019-05-24 12:05] LABS: Bilirubin Negative (Negative); Blood, Urine Negative (Negative); Clarity Clear (Clear); Glucose, Urine (Dipstick) Negative (Negative); Leukocyte Negative (Negative); Nitrite Negative (Negative); Protein, Urine (Dipstick) Negative (Neg-Trace); Urobilinogen 0.2 mg/dL (Less than 2)
--- NOTE | 2019-05-24 12:10 | RAD ---
XR Chest Pa Lat STANDARD History: Preop evaluation Comparison: Radiograph June 16, 2016 Findings: Heart size is enlarged. Mild pulmonary venous congestion. No pneumothorax. No effusion. Impression: Cardiomegaly and mild pulmonary venous congestion.
[2019-05-24 12:11] LABS: ALT (SGPT) 19 U/L (8-55); AST (SGOT) 16 U/L (5-34); Albumin 4.3 g/dL (3.5-5.0); Alkaline Phosphatase 64 U/L (40-110); Anion Gap 15 mmol/L (10-20); BUN (Urea Nitrogen) 14 mg/dL (8.4-25.7); Bilirubin, Total 0.5 mg/dL (0.2-1.2); Calc. Creatinine Clearance 0 mL/min (70-130); Calcium 9.6 mg/dL (7.8-10.44); Carbon Dioxide 26 mmol/L (22-29); Chloride 106 mmol/L (98-107); Estimated GFR-MDRD 69; Globulin 3.3 g/dL (2.4-3.5); Glucose 69 mg/dL (70-105); Potassium 4.4 mmol/L (3.5-5.1); Protein, Total 7.6 g/dL (6.0-8.3); Sodium 143 mmol/L (136-145)
[2019-05-24 12:12] LABS: Bacteria/HPF Rare-Few HPF (None Seen); RBC/HPF 0-3 HPF (0-3); Squamous Epithelial 0-3 HPF (0-3)
[2019-05-24 12:13] LABS: WBC/HPF 0-3 HPF (0-3)
== END 2019-05-24 11:35 | disposition home or self-care (01) ==
LOC: MADLABBHPM 11:34
PROVIDERS: ATTEND Family Medicine
DX: Z01.818 Encounter for other preprocedural examination (principal); I51.7 Cardiomegaly
CPT/HCPCS: 36415; 71046; 80053; 81001; 83036; 85025; 93005; 93010

== ENCOUNTER 2019-12-16 00:12 | Emergency (ER) | payer OTHER ==
[2019-12-16] MEDS ORDERED: Sodium Chloride 0.9% 1,000 ML ONE (01:00)
[2019-12-16 01:09] LABS: ALT (SGPT) 23 U/L (8-55); AST (SGOT) 17 U/L (5-34); Albumin 4.2 g/dL (3.5-5.0); Alkaline Phosphatase 68 U/L (40-110); Anion Gap 19 mmol/L (10-20); BUN (Urea Nitrogen) 21 mg/dL (8.4-25.7); Bilirubin, Total 1.2 mg/dL (0.2-1.2); Calc. Creatinine Clearance 0 mL/min (70-130); Calcium 8.9 mg/dL (7.8-10.44); Carbon Dioxide 16 mmol/L (22-29); Chloride 103 mmol/L (98-107); Estimated GFR-MDRD 74; Glucose 178 mg/dL (70-105); Potassium 4.1 mmol/L (3.5-5.1); Protein, Total 7.2 g/dL (6.0-8.3); Sodium 134 mmol/L (136-145)
[2019-12-16 01:19] LABS: #Basophils 0.4 thou/uL (0.0-0.2); #Lymphocytes 0.8 thou/uL (1.20-3.40); #Monocytes 0.9 thou/uL (0.11-0.59); #Neutrophils 16.8 thou/uL (1.40-6.50); %Basophils 2.2 % (0.0-1.0); %Lymphocytes 4.4 % (21.0-51.0); %Monocytes 4.9 % (0.0-10.0); %Neutrophils 88.4 % (42.0-75.0); Mean Corpuscular HGB CONC 30.4 g/dL (32.0-36.0); Mean Corpuscular Hemoglobin 27.5 pg (27.0-31.0); Mean Corpuscular Volume 90.4 fL (78.0-98.0); Mean Platelet Volume 11.8 fL (7.4-10.4); Platelet Count 204 thou/uL (130-400); RBC Distribution Width 14.3 % (11.5-14.5); Red Blood Cell (RBC) Count 4.72 mill/uL (4.70-6.10)
[2019-12-16] MEDS ORDERED: Lorazepam 2 MG/ML VIAL ONE (01:24)
[2019-12-16] MEDS ORDERED: Aspirin Chewable 81 MG TAB ONE (01:25)
[2019-12-16] MEDS ORDERED: Nitroglycerin 2% Ointment 1 INCH/1 GM Packet ONE (01:25)
[2019-12-16 01:29] LABS: CKMB 2.9 ng/mL (0-6.6)
--- NOTE | 2019-12-16 07:50 | RAD ---
XR Chest 1 View Portable HISTORY: Chest pain COMPARISON: 05/24/2019 FINDINGS: The heart size is normal. The lungs are well expanded without focal areas of consolidation, pneumothorax or pleural effusions. IMPRESSION: No radiographic evidence of acute cardiopulmonary process.
== END 2019-12-16 02:22 | disposition short-term general hospital (02) ==
LOC: MADERS 00:12
DX: I21.4 Non-ST elevation (NSTEMI) myocardial infarction (principal); I24.9 Acute ischemic heart disease, unspecified; F14.90 Cocaine use, unspecified, uncomplicated; E87.1 Hypo-osmolality and hyponatremia; E78.5 Hyperlipidemia, unspecified; I12.9 Hypertensive chronic kidney disease with stage 1 through stage 4 chronic kidney disease, or unspecified chronic kidney disease; N18.3 Chronic kidney disease, stage 3 (moderate); I50.9 Heart failure, unspecified; E11.22 Type 2 diabetes mellitus with diabetic chronic kidney disease; M10.9 Gout, unspecified; I48.92 Unspecified atrial flutter; Z79.899 Other long term (current) drug therapy; Z79.4 Long term (current) use of insulin
CPT/HCPCS: 71045; 80053; 82553; 84484; 85025; 96374; J2060; J7050

== ENCOUNTER 2022-01-06 12:08 | Emergency (ER) | payer OTHER ==
[~2022-01-06 12:08] MED LIST changes: -Iopamidol 370 76% 125 ML VIAL FS ONE; +Sodium Chloride 0.9% 500 ML BAG ONE
[2022-01-06] MEDS ORDERED: Ondansetron PF 4 MG/2 ML Vial ONE (13:03)
[2022-01-06] MEDS ORDERED: Sodium Chloride 0.9% 100 ML ONE (13:03)
[2022-01-06] MEDS ORDERED: Clindamycin/D5W 900 mg/50 ml Premix Bag ONE (13:03)
[2022-01-06] MEDS ORDERED: Cefepime 2 GM VIAL ONE (13:03)
[2022-01-06] MEDS ORDERED: Sodium Chloride 0.9% 250 ML 500 ML ONE (13:03)
[2022-01-06 13:46] LABS: Anisocytosis SLIGHT = 6-15 cells (100X) (0-5/hpf); Band 1 % (5-11); Hemoglobin 10.5 g/dL (14.0-18.0); Hypochromia SLIGHT = 6-15 cells (100X) (0-5/hpf); Lymphocytes 11 % (21-51); MDiff Complete? YES; Mean Corpuscular HGB CONC 29.7 g/dL (32.0-36.0); Mean Corpuscular Hemoglobin 26.9 pg (27.0-31.0); Mean Corpuscular Volume 90.6 fL (78.0-98.0); Mean Platelet Volume 8.6 fL (7.4-10.4); Monocytes 5 % (0-10); Neutrophil 83 % (42-75); Platelet Count 369 thou/uL (130-400); Platelet Morphology Comment Appears Adequate; RBC Distribution Width 16.3 % (11.5-14.5); Red Blood Cell (RBC) Count 3.91 mill/uL (4.70-6.10); White Blood Cell (WBC) Count 24.9 thou/uL (4.8-10.8)
[2022-01-06 13:52] LABS: ALT (SGPT) 43 U/L (8-55); AST (SGOT) 18 U/L (5-34); Albumin 3.5 g/dL (3.5-5.0); Alkaline Phosphatase 84 U/L (40-110); Anion Gap 17 mmol/L (10-20); BUN (Urea Nitrogen) 19 mg/dL (8.4-25.7); Bilirubin, Total 0.4 mg/dL (0.2-1.2); Calc. Creatinine Clearance 0 mL/min (70-130); Calcium 9.4 mg/dL (7.8-10.44); Carbon Dioxide 18 mmol/L (22-29); Chloride 108 mmol/L (98-107); Estimated GFR 65; Globulin 3.9 g/dL (2.4-3.5); Glucose 164 mg/dL (70-105); Potassium 4.8 mmol/L (3.5-5.1); Protein, Total 7.4 g/dL (6.0-8.3); Sodium 138 mmol/L (136-145)
[2022-01-06 15:09] LABS: SARS-CoV-2 NAA Rapid Test Not Detected (NotDetected)
== END 2022-01-06 16:15 | disposition short-term general hospital (02) ==
LOC: MADERS 12:08
DX: M86.8X8 Other osteomyelitis, other site (principal); I48.92 Unspecified atrial flutter; E78.00 Pure hypercholesterolemia, unspecified; M10.9 Gout, unspecified; I13.0 Hypertensive heart and chronic kidney disease with heart failure and stage 1 through stage 4 chronic kidney disease, or unspecified chronic kidney disease; E11.22 Type 2 diabetes mellitus with diabetic chronic kidney disease; N18.30 Chronic kidney disease, stage 3 unspecified; I50.9 Heart failure, unspecified; Z79.4 Long term (current) use of insulin; Z79.899 Other long term (current) drug therapy; Z20.822 Contact with and (suspected) exposure to COVID-19
CPT/HCPCS: 80053; 83605; 85025; 86140; 87040; 87077; 87149; 87186; 94760; 96365; 96366; 96367; 96375; J0692; J2405; J3370; J3490; J7030; J7050; U0002

== ENCOUNTER 2022-09-29 10:12 | Emergency (ER) | payer OTHER ==
[2022-09-29 12:06] LABS: Hemoglobin 9.3 g/dL (14.0-18.0); Mean Corpuscular HGB CONC 30.2 g/dL (32.0-36.0); Mean Corpuscular Hemoglobin 25.4 pg (27.0-31.0); Mean Platelet Volume 11.4 fL (7.4-10.4); Platelet Count 345 10x3/uL (130-400); RBC Distribution Width 22.7 % (11.5-14.5); Red Blood Cell (RBC) Count 3.66 mill/uL (4.70-6.10); White Blood Cell (WBC) Count 9.5 10x3/uL (4.8-10.8)
[2022-09-29 12:10] LABS: ALT (SGPT) 31 U/L (8-55); AST (SGOT) 26 U/L (5-34); Albumin 3.2 g/dL (3.5-5.0); Alkaline Phosphatase 168 U/L (40-110); Anion Gap 17 mmol/L (10-20); BUN (Urea Nitrogen) 16 mg/dL (8.4-25.7); Bilirubin, Total 0.7 mg/dL (0.2-1.2); Calc. Creatinine Clearance 0 mL/min (70-130); Calcium 8.7 mg/dL (7.8-10.44); Carbon Dioxide 19 mmol/L (22-29); Chloride 110 mmol/L (98-107); Estimated GFR 78; Globulin 3.8 g/dL (2.4-3.5); Glucose 150 mg/dL (70-105); Potassium 3.8 mmol/L (3.5-5.1); Sodium 142 mmol/L (136-145)
[2022-09-29 12:16] LABS: Anisocytosis SLIGHT = 6-15 cells (100X) (0-5/hpf); Band 6 % (5-11); Hypochromia SLIGHT = 6-15 cells (100X) (0-5/hpf); Lymphocytes 12 % (21-51); MDiff Complete? YES; Monocytes 5 % (0-10); Neutrophil 77 % (42-75); Platelet Morphology Comment Appears Adequate
== END 2022-09-29 12:10 | disposition short-term general hospital (02) ==
LOC: MADERS 10:12
DX: R60.0 Localized edema (principal); E78.00 Pure hypercholesterolemia, unspecified; E11.22 Type 2 diabetes mellitus with diabetic chronic kidney disease; I13.0 Hypertensive heart and chronic kidney disease with heart failure and stage 1 through stage 4 chronic kidney disease, or unspecified chronic kidney disease; N18.30 Chronic kidney disease, stage 3 unspecified; Z79.4 Long term (current) use of insulin
CPT/HCPCS: 71045; 80053; 85025; 85652; 86140; 87040; 87077; 87149; 87186

== ENCOUNTER 2023-04-09 16:25 | Emergency (ER) | payer MEDICAID, OTHER ==
[~2023-04-09 16:25] MED LIST changes: +Sodium Chloride 0.9% 1,000 ML BAG ONE; -Sodium Chloride 0.9% 500 ML BAG ONE
[2023-04-09] MEDS ORDERED: Morphine 4 MG/ML VIAL ONE (18:01)
[2023-04-09 18:16] LABS: INR-International Normal Ratio 1.4; Prothrombin Time 17.3 sec (12.0-14.7)
[2023-04-09 18:19] LABS: D-Dimer Test 2.11 *mcg/mL (0.27-0.43)
[2023-04-09 18:20] LABS: #Basophils 0.2 thou/uL (0.0-0.2); #Eosinphils 0.1 thou/uL (0.0-0.7); #Lymphocytes 1.1 thou/uL (1.20-3.40); #Monocytes 0.8 thou/uL (0.11-0.59); #Neutrophils 11.1 thou/uL (1.40-6.50); %Basophils 1.5 % (0.0-1.0); %Lymphocytes 7.9 % (21.0-51.0); %Monocytes 6.3 % (0.0-10.0); %Neutrophils 83.3 % (42.0-75.0); Hemoglobin 13.9 g/dL (14.0-18.0); White Blood Cell (WBC) Count 13.3 10x3/uL (4.8-10.8)
[2023-04-09 18:22] LABS: Hematocrit 43.6 % (42.0-52.0); Mean Corpuscular HGB CONC 32.2 g/dL (32.0-36.0); Mean Corpuscular Hemoglobin 26.9 pg (27.0-31.0); Mean Corpuscular Volume 83.7 fl (78.0-98.0); Mean Platelet Volume 10.3 fL (7.4-10.4); Platelet Count 220 10x3/uL (130-400); RBC Distribution Width 16.2 % (11.5-14.5); Red Blood Cell (RBC) Count 5.21 mill/uL (4.70-6.10)
[2023-04-09 18:23] LABS: CRP (Inflammatory) 0.66 mg/dL (= or < 0.5); Magnesium 1.7 mg/dL (1.6-2.6)
[2023-04-09] MEDS ORDERED: Ondansetron PF 4 MG/2 ML Vial ONE (18:30)
[2023-04-09 18:31] LABS: ALT (SGPT) 21 U/L (8-55); AST (SGOT) 17 U/L (5-34); Albumin 4.2 g/dL (3.5-5.0); Alkaline Phosphatase 174 U/L (40-110); Anion Gap 18 mmol/L (10-20); BUN (Urea Nitrogen) 15 mg/dL (8.4-25.7); Bilirubin, Total 0.8 mg/dL (0.2-1.2); CK (CPK) 64 U/L (30-200); Calc. Creatinine Clearance 0 mL/min (70-130); Calcium 9.3 mg/dL (7.8-10.44); Carbon Dioxide 21 mmol/L (22-29); Chloride 102 mmol/L (98-107); Estimated GFR 70; Globulin 3.4 g/dL (2.4-3.5); Glucose 151 mg/dL (70-105); Potassium 4.4 mmol/L (3.5-5.1); Protein, Total 7.6 g/dL (6.0-8.3); Sodium 137 mmol/L (136-145)
[2023-04-09] MEDS ORDERED: Vancomycin 1 GM VIAL ONE (19:41)
[2023-04-09] MEDS ORDERED: Sodium Chloride 0.9% 250 ML 250 ML ONE (19:42)
== END 2023-04-09 22:26 | disposition short-term general hospital (02) ==
LOC: MADERS 16:25
DX: M00.012 Staphylococcal arthritis, left shoulder (principal); R79.89 Other specified abnormal findings of blood chemistry; I13.0 Hypertensive heart and chronic kidney disease with heart failure and stage 1 through stage 4 chronic kidney disease, or unspecified chronic kidney disease; I50.9 Heart failure, unspecified; N18.2 Chronic kidney disease, stage 2 (mild); E11.22 Type 2 diabetes mellitus with diabetic chronic kidney disease; E78.5 Hyperlipidemia, unspecified; Z79.899 Other long term (current) drug therapy; Z79.01 Long term (current) use of anticoagulants
CPT/HCPCS: 36416; 80053; 82550; 83605; 83735; 85025; 85379; 85610; 86140; 87040; 87077; 87186; 93005; 96361; 96365; 96372; 96375; J1650; J2270; J2405; J3370; J7050

== ENCOUNTER 2025-01-23 08:46 | Outpatient (CLI) | payer MEDICAID ==
[2025-01-23 09:40] LABS: Anion Gap 18 mmol/L (10-20); BUN (Urea Nitrogen) 13 mg/dL (8.4-25.7); Calc. Creatinine Clearance 0 mL/min (70-130); Calcium 8.8 mg/dL (7.8-10.44); Carbon Dioxide 20 mmol/L (23-31); Chloride 106 mmol/L (98-107); Glucose 191 mg/dL (80-115); Potassium 4.4 mmol/L (3.5-5.1); Sodium 140 mmol/L (136-145)
[2025-01-23 09:49] LABS: #Basophils 0.2 thou/uL (0.0-0.2); #Eosinophils 0.3 thou/uL (0.0-0.7); #Lymphocytes 1.7 thou/uL (1.20-3.40); #Monocytes 1.0 thou/uL (0.11-0.59); #Neutrophils 8.3 thou/uL (1.40-6.50); %Basophils 1.5 % (0.0-1.0); %Eosinophils 2.5 % (0.0-10.0); %Lymphocytes 14.9 % (21.0-51.0); %Monocytes 9.1 % (0.0-10.0); %Neutrophils 71.9 % (42.0-75.0); Hematocrit 53.1 % (42.0-52.0); Hemoglobin 15.5 g/dL (14.0-18.0); Mean Corpuscular Hemoglobin 25.9 pg (27.0-31.0); Mean Corpuscular Volume 88.7 fl (78.0-98.0); Platelet Count 180 10x3/uL (130-400); Red Blood Cell (RBC) Count 5.99 mill/uL (4.70-6.10); White Blood Cell (WBC) Count 11.5 10x3/uL (4.8-10.8)
== END 2025-01-23 08:47 | disposition home or self-care (01) ==
LOC: MADLAB 08:46
PROVIDERS: ATTEND Nurse Practitioner Primary Care
DX: I12.9 Hypertensive chronic kidney disease with stage 1 through stage 4 chronic kidney disease, or unspecified chronic kidney disease (principal); E11.22 Type 2 diabetes mellitus with diabetic chronic kidney disease; N18.9 Chronic kidney disease, unspecified; E11.40 Type 2 diabetes mellitus with diabetic neuropathy, unspecified; E78.5 Hyperlipidemia, unspecified
CPT/HCPCS: 80048; 83036; 85025

== ENCOUNTER 2025-03-11 08:44 | Outpatient (CLI) | payer MEDICAID ==
[2025-03-11 09:00] LABS: Glucose, Urine (Dipstick) 500 mg/dL (Negative); Leukocyte Negative (Negative); Protein, Urine (Dipstick) Negative (Neg-Trace); Specific Gravity, Urine 1.015 (1.005-1.030)
[2025-03-11 09:08] LABS: RBC/HPF 0-3 HPF (0-3)
[2025-03-11 09:09] LABS: Bacteria/HPF 2+ HPF (None Seen)
== END 2025-03-11 08:45 | disposition home or self-care (01) ==
LOC: MADLAB 08:44
PROVIDERS: ATTEND Family Medicine
DX: E11.22 Type 2 diabetes mellitus with diabetic chronic kidney disease (principal); N18.9 Chronic kidney disease, unspecified; E11.51 Type 2 diabetes mellitus with diabetic peripheral angiopathy without gangrene; E11.40 Type 2 diabetes mellitus with diabetic neuropathy, unspecified
CPT/HCPCS: 81001; 87086